=== PATIENT | male | born 1970 ===

== ENCOUNTER 2017-05-23 06:00 | Day surgery (SDC) | payer OTHER ==
[~2017-05-23 06:00] MED LIST: LIPITOR20 MG PO
[2017-05-23] MEDS ORDERED: ULTRACET PO (09:32)
[2017-05-23] MEDS ORDERED: NEURONTIN300 MG PO (09:32)
[2017-05-23] MEDS ORDERED: MIRALAX17 GM PO (09:32)
== END 2017-05-23 12:56 | disposition home or self-care (01) ==
LOC: CIR.AMB 06:00
DX: K40.90 Unilateral inguinal hernia, without obstruction or gangrene, not specified as recurrent (principal)